=== PATIENT | female | born 2000 | race Caucasian/White ===

== ENCOUNTER 2018-02-18 18:43 | Emergency (ER) | payer MEDICAID, OTHER ==
[2018-02-18 20:43] LABS: URINE BLOOD (Dip) POC 3+ (NEGATIVE); URINE GLUCOSE (Dip) POC Negative (NEGATIVE); URINE KETONES (Dip) POC 4+ (NEGATIVE); URINE LEUKOCYTE EST (Dip) POC Negative (NEGATIVE); URINE NITRITE (Dip) POC Negative (NEGATIVE); URINE TOTAL PROTEIN POC 2+ (NEGATIVE)
[2018-02-18] MEDS: LIDOCAINE/MYLANTA 40 ML BTL PO (21:03)
[2018-02-18] MEDS: ONDANSETRON (ODT) 4 MG TAB ODT (21:03)
== END 2018-02-18 21:19 | disposition home or self-care (01) ==
LOC: FTE 18:43
DX: R10.84 Generalized abdominal pain (principal); R11.2 Nausea with vomiting, unspecified
CPT/HCPCS: 81003; 81025; 99284

== ENCOUNTER 2018-08-20 20:47 | Emergency (ER) | payer MEDICAID ==
[2018-08-20 21:37] LABS: ADD MAN DIFF? NO
[2018-08-20 21:46] LABS: WHITE BLOOD COUNT 9.8 10^3/ul (4.8-10.8)
[2018-08-20 21:46] LABS: ADD UMIC YES; BASOPHIL # 0.1 10^3/ul (0.0-0.1); BASOPHILS % 0.5 % (0.0-2.0); EOSINOPHILS # 0.2 10^3/ul (0.0-0.5); EOSINOPHILS % 2.3 % (0.0-7.0); HEMATOCRIT 33.6 % (37.0-47.0); HEMOGLOBIN 11.6 g/dl (12.0-16.0); LYMPHOCYTES # 2.6 10^3/ul (0.8-2.9); MEAN CORPUSCULAR HEMOGLOBIN 30.9 pg (29.0-33.0); MEAN CORPUSCULAR HGB CONC 34.5 g/dl (32.0-37.0); MEAN CORPUSCULAR VOLUME 89.4 fl (72.0-104.0); MEAN PLATELET VOLUME 10.5 fl (7.4-10.4); MONOCYTES % 10.2 % (0.0-13.0); NEUTROPHILS % 60.5 % (30.0-74.0); PLATELET COUNT 244 10^3/UL (140-415); RED BLOOD COUNT 3.76 10^6/ul (4.20-5.40); RED CELL DISTRIBUTION WIDTH 12.4 % (11.5-14.5); UR ASCORBIC ACID NEGATIVE (NEGATIVE); UR BILIRUBIN (Dip) NEGATIVE (NEGATIVE); UR BLOOD (Dip) 1+ mg/dL (NEGATIVE); UR CLARITY SLIGHTLY CLOUDY (CLEAR); UR COLOR YELLOW (YELLOW); UR GLUCOSE (Dip) NEGATIVE (NEGATIVE); UR KETONES (Dip) NEGATIVE (NEGATIVE); UR LEUKOCYTE ESTERASE (Dip) 2+ Leu/ul (NEGATIVE); UR NITRITE (Dip) NEGATIVE (NEGATIVE); UR RBC 0 /HPF (0-5); UR SPECIFIC GRAVITY (Dip) 1.013 (1.003-1.030); UR SQUAMOUS EPITHELIAL CELL FEW /HPF (FEW); UR TOTAL PROTEIN (Dip) NEGATIVE (NEGATIVE); UR UROBILINOGEN (Dip) NEGATIVE (NEGATIVE); UR WBC 2 /HPF (0-5)
== END 2018-08-20 23:15 | disposition home or self-care (01) ==
LOC: FTE 20:47
DX: O20.9 Hemorrhage in early pregnancy, unspecified (principal); O23.12 Infections of bladder in pregnancy, second trimester; R10.2 Pelvic and perineal pain; Z3A.16 16 weeks gestation of pregnancy
CPT/HCPCS: 36415; 76805; 81001; 84702; 85025; 86900; 86901; 99284-25

== ENCOUNTER 2018-11-18 18:32 | Outpatient (CLI) | payer MEDICAID ==
[2018-11-18 21:58] LABS: ADD UMIC YES; UR ASCORBIC ACID NEGATIVE (NEGATIVE); UR BACTERIA FEW /HPF (NONE SEEN); UR BILIRUBIN (Dip) NEGATIVE (NEGATIVE); UR BLOOD (Dip) 3+ mg/dL (NEGATIVE); UR CLARITY CLOUDY (CLEAR); UR COLOR YELLOW (YELLOW); UR GLUCOSE (Dip) NEGATIVE (NEGATIVE); UR KETONES (Dip) NEGATIVE (NEGATIVE); UR LEUKOCYTE ESTERASE (Dip) 3+ Leu/ul (NEGATIVE); UR NITRITE (Dip) NEGATIVE (NEGATIVE); UR RBC 4 /HPF (0-5); UR SPECIFIC GRAVITY (Dip) 1.016 (1.003-1.030); UR SQUAMOUS EPITHELIAL CELL MODERATE /HPF (FEW); UR TOTAL PROTEIN (Dip) NEGATIVE (NEGATIVE); UR UROBILINOGEN (Dip) NEGATIVE (NEGATIVE); UR WBC > 182 /HPF (0-5)
== END 2018-11-18 23:20 | disposition home or self-care (01) ==
LOC: OBT 18:32 → L-D 18:35 → OBT 23:20
DX: O46.8X2 Other antepartum hemorrhage, second trimester (principal); Z3A.28 28 weeks gestation of pregnancy
CPT/HCPCS: 76815; 76817; 81001; 86900; 86901

== ENCOUNTER 2019-02-04 09:36 | Inpatient (IN) | payer MEDICAID ==
[2019-02-04] MEDS ORDERED: IBUPROFEN 600 MG TAB PO (11:30)
[2019-02-04] MEDS ORDERED: CARBOPROST 250 MCG INJ IM ×2 (11:30→12:00)
[2019-02-04] MEDS ORDERED: BUTORPHANOL 2 MG INJ IV ×2 (11:30)
[2019-02-04] MEDS ORDERED: OXYTOCIN 30 UNITS/LR 500 ML IV ×5 (11:30→12:00)
[2019-02-04] MEDS ORDERED: MISOPROSTOL 200 MCG TAB PR ×2 (11:30→12:00)
[2019-02-04] MEDS ORDERED: LIDOCAINE 1% (MPF) 30 ML INJ INJ (12:00)
[2019-02-04] MEDS ORDERED: METHYLERGONOVINE 0.2 MG INJ IM (12:00)
[2019-02-04 12:30] LABS: ADD MAN DIFF? NO
[2019-02-04] MEDS ORDERED: MISOPROSTOL 50 MCG CAPSULE VAG (12:30)
[2019-02-04 12:36] LABS: WHITE BLOOD COUNT 12.6 10^3/ul (4.8-10.8)
[2019-02-04 12:36] LABS: BASOPHIL # 0.1 10^3/ul (0.0-0.1); BASOPHILS % 0.5 % (0.0-2.0); EOSINOPHILS # 0.2 10^3/ul (0.0-0.5); EOSINOPHILS % 1.6 % (0.0-7.0); HEMATOCRIT 34.3 % (37.0-47.0); HEMOGLOBIN 11.1 g/dl (12.0-16.0); LYMPHOCYTES # 1.9 10^3/ul (0.8-2.9); LYMPHOCYTES % 15.4 % (18.0-55.0); MEAN CORPUSCULAR HEMOGLOBIN 29.6 pg (29.0-33.0); MEAN CORPUSCULAR HGB CONC 32.4 g/dl (32.0-37.0); MEAN CORPUSCULAR VOLUME 91.5 fl (72.0-104.0); MEAN PLATELET VOLUME 10.9 fl (7.4-10.4); MONOCYTE # 1.2 10^3/ul (0.3-0.9); MONOCYTES % 9.8 % (0.0-13.0); NEUTROPHILS % 71.3 % (30.0-74.0); PLATELET COUNT 227 10^3/UL (140-415); RED BLOOD COUNT 3.75 10^6/ul (4.20-5.40); RED CELL DISTRIBUTION WIDTH 13.4 % (11.5-14.5)
[2019-02-04 12:55] LABS: PROTIME 12.3 Sec (11.9-14.9)
[2019-02-04] MEDS: LACTATED RINGER'S 1,000 ML IV ×2 (12:55→17:33)
[2019-02-04 12:56] LABS: PARTIAL THROMBOPLASTIN TIME 29.6 Sec (23.0-35.0)
[2019-02-04] MEDS: OXYTOCIN 30 UNITS/LR 500 ML IV (12:57)
[2019-02-04 13:28] LABS: HEPATITIS B SURFACE ANTIGEN NEGATIVE (NEGATIVE)
[2019-02-04 18:56] LABS: RAPID PLASMA REAGIN NONREACTIVE (NR)
[2019-02-05] MEDS: LACTATED RINGER'S 1,000 ML IV ×3 (01:32→18:54)
[2019-02-05] MEDS ORDERED: NALOXONE (0.4 MG/ML) INJ IV (14:00)
[2019-02-05] MEDS ORDERED: FENTAnyl 2MCG/ML-ROPIV 0.2% 100 ML BAG EPI (14:00)
[2019-02-05] MEDS ORDERED: ONDANSETRON 4 MG INJ IV ×2 (14:00→23:30)
[2019-02-05] MEDS ORDERED: DIPHENHYDRAMINE 50 MG INJ IV (14:00)
[2019-02-05] MEDS: OXYTOCIN 30 UNITS/LR 500 ML IV ×2 (18:58→23:19)
[2019-02-05] MEDS: AMPICILLIN 2 GM/NS (PMX) 100 ML IV (20:30)
[2019-02-05] MEDS: METHYLERGONOVINE 0.2 MG INJ IM (23:26)
[2019-02-05] MEDS: LIDOCAINE 1% (MPF) 30 ML INJ INJ (23:26)
[2019-02-05] MEDS ORDERED: METHYLERGONOVINE 0.2 MG INJ IM (23:30)
[2019-02-05] MEDS ORDERED: OXYCODONE/ASPIRIN (4.88/325) TAB PO ×2 (23:30)
[2019-02-05] MEDS ORDERED: CARBOPROST 250 MCG INJ IM (23:30)
[2019-02-05] MEDS ORDERED: NACL 0.9% 3 ML SYG IV (23:30)
[2019-02-05] MEDS ORDERED: OXYTOCIN 30 UNITS/LR 500 ML IV (23:30)
[2019-02-05] MEDS ORDERED: MISOPROSTOL 200 MCG TAB PR (23:30)
[2019-02-06] MEDS ORDERED: AMPICILLIN 1 GM/NS (PMX) 50 ML IV (00:30)
[2019-02-06] MEDS: IBUPROFEN 600 MG TAB PO ×5 (01:21→23:38)
[2019-02-06] MEDS: MISOPROSTOL 50 MCG CAPSULE VAG ×2 (03:44→03:45)
[2019-02-06] MEDS: WITCH HAZEL/GLYCERIN PAD PR (06:02)
[2019-02-06] MEDS: BENZOCAINE 20% 56 ML SPRAY TOP (06:02)
[2019-02-06] MEDS: LANOLIN HPA 1 PKT TOP (06:03)
[2019-02-06] MEDS: OXYTOCIN 30 UNITS/LR 500 ML IV (06:04)
[2019-02-06] MEDS ORDERED: SENNA/DOCUSATE NA (8.6MG/50MG) TAB PO (09:00)
[2019-02-06 09:22] LABS: ADD MAN DIFF? NO
[2019-02-06 09:29] LABS: WHITE BLOOD COUNT 18.4 10^3/ul (4.8-10.8)
[2019-02-06 09:29] LABS: ABNORMAL IP MESSAGE 1; BASOPHIL # 0.1 10^3/ul (0.0-0.1); BASOPHILS % 0.4 % (0.0-2.0); EOSINOPHILS # 0.2 10^3/ul (0.0-0.5); EOSINOPHILS % 1.1 % (0.0-7.0); HEMATOCRIT 30.9 % (37.0-47.0); HEMOGLOBIN 10.1 g/dl (12.0-16.0); LYMPHOCYTES # 2.3 10^3/ul (0.8-2.9); LYMPHOCYTES % 12.6 % (18.0-55.0); MEAN CORPUSCULAR HEMOGLOBIN 29.5 pg (29.0-33.0); MEAN CORPUSCULAR HGB CONC 32.7 g/dl (32.0-37.0); MEAN CORPUSCULAR VOLUME 90.4 fl (72.0-104.0); MEAN PLATELET VOLUME 11.1 fl (7.4-10.4); MONOCYTE # 2.1 10^3/ul (0.3-0.9); MONOCYTES % 11.4 % (0.0-13.0); NEUTROPHIL # 13.5 10^3/ul (1.6-7.5); NEUTROPHILS % 73.5 % (30.0-74.0); PLATELET COUNT 226 10^3/UL (140-415); RED BLOOD COUNT 3.42 10^6/ul (4.20-5.40)
[2019-02-06 09:33] LABS: POSITIVE DIFF @See below
[2019-02-06] MEDS: SENNA/DOCUSATE NA (8.6MG/50MG) TAB PO (19:56)
[2019-02-06] MEDS: GUAIFENESIN/DM 5ML CUP PO (19:56)
[2019-02-07] MEDS: IBUPROFEN 600 MG TAB PO (05:29)
[2019-02-07] MEDS: GUAIFENESIN/DM 5ML CUP PO (05:36)
[2019-02-07 08:30] LABS: WHITE BLOOD COUNT 14.7 10^3/ul (4.8-10.8)
[2019-02-07] MEDS: SENNA/DOCUSATE NA (8.6MG/50MG) TAB PO (09:44)
== END 2019-02-07 12:18 | disposition home or self-care (01) | DRG 807 ==
LOC: L-D 09:36 → PP1 02-06 00:30
PROVIDERS: Obstetrics & Gynecology
PROC: 3E033VJ Introduction of Other Hormone into Peripheral Vein, Percutaneous Approach (ICD-10-PCS; 2019-02-04 09:00)
DX: O80 Encounter for full-term uncomplicated delivery (principal); Z37.0 Single live birth; Z3A.40 40 weeks gestation of pregnancy
CPT/HCPCS: 62322; 76815; 85025; 85048; 85610; 85730; 86592; 86850; 86900; 86901; 87340